=== PATIENT | male | born 1975 | race Caucasian/White ===

== ENCOUNTER 2024-06-09 10:28 | Inpatient (IN) | payer OTHER ==
[~2024-06-09] VITALS: Ht 177.8 cm; Wt 191.4 kg
[2024-06-09] MEDS: SODIUM CHLORIDE 0.9% (SEPSIS BOLUS) IV ONE (11:09)
[2024-06-09] MEDS: PIPERACILLIN/TAZO 3.375G/50ML 50 ML IV ONE (11:09)
[2024-06-09 11:22] LABS: BG BASE EXCESS -5.5 mmol/L (-2.0-3.0); BG CARBOXYHEMOGLOBIN 0.5 % (0.5-1.5); BG DEOXYHEMOGLOBIN 8.8 % (0.0-5.0); BG FRACTION INSPIRED OXYGEN 21; BG METHEMOGLOBIN 0.3 % (0.5-1.5); BG OXYGEN SATURATION 91.1 % (94.0-98.0); BG OXYHEMOGLOBIN 90.4 % (94.0-98.0); BG PCO2 25.6 mmHg (35.0-48.0); BG PH 7.441 (7.350-7.450); BG PO2 58.6 mmHg (83.0-108.0); BG SAMPLE SITE RIGHT RADIAL; BG TOTAL HEMOGLOBIN 12.6 g/dL (13.5-17.5); BG VENT MODE ROOM AIR
[2024-06-09 11:30] LABS: HEMATOCRIT. 37.4 % (42.0-52.0); HEMOGLOBIN. 12.4 g/dL (14.0-18.0); MEAN CORPUSCULAR HEMOGLOBIN 34.4 pg (28.0-32.0); MEAN CORPUSCULAR HGB CONC 33.3 g/dL (31.0-37.0); MEAN CORPUSCULAR VOLUME 103.4 fL (80.0-94.0); MEAN PLATELET VOLUME 8.3 fl (7.4-10.4); PLATELET 146 x1000/uL (130-400); RED BLOOD CELL COUNT 3.62 mill/uL (4.7-6.1); RED CELL DISTRIBUTION WIDTH 15.4 % (11.6-14.6); WHITE BLOOD COUNT 16.2 x1000/uL (4.5-11.0)
[2024-06-09 11:34] LABS: CHLORIDE 109 mEq/L (98-107); POTASSIUM 4.1 mEq/L (3.5-5.1); SODIUM 140 mEq/L (136-145)
[2024-06-09 11:35] LABS: CARBON DIOXIDE 19 mEq/L (21-32); INR 1.3; PROTHROMBIN TIME 14.1 sec (9.6-11.0)
[2024-06-09 11:36] LABS: CALCIUM 8.2 mg/dL (8.7-10.4)
[2024-06-09 11:39] LABS: DIFFERENTIAL COMMENT 1
[2024-06-09 11:40] LABS: CREATININE 1.2 mg/dL (0.6-1.3); GLUCOSE 102 mg/dL (70-105)
[2024-06-09 11:41] LABS: TROPONIN I HIGH SENSITIVITY 30 ng/L (3.0-53); UREA NITROGEN BLOOD 16 mg/dL (9-23)
[2024-06-09 11:42] LABS: ALANINE AMINOTRANSFERASE 22 IU/L (10-49); ASPARTATE AMINOTRANSFERASE 50 IU/L (<34)
[2024-06-09 11:43] LABS: ALBUMIN 2.9 g/dL (3.2-4.8); BILIRUBIN DIRECT 1.4 mg/dL (<=3.0); PROTEIN TOTAL 6.2 g/dL (6.0-8.3)
[2024-06-09 11:55] LABS: PLATELET ESTIMATE NORMAL
[2024-06-09] MEDS: VANCOMYCIN 1G PREMIX 200 ML IV ONE (12:20)
[2024-06-09] MEDS ORDERED: VANCOMYCIN 1G PREMIX 200 ML IV ONE (12:30)
[2024-06-09 12:31] LABS: LACTIC ACID 5.8 mmol/L (0.4-2.0)
[2024-06-09] MEDS ORDERED: MAGNESIUM/ALUMINUM HYDROXIDE/SIMETHICONE 30ML UDC PO PRN (12:45)
[2024-06-09] MEDS ORDERED: GUAIFENESIN 200MG/10ML SUGAR FREE UDC PO PRN (12:45)
[2024-06-09] MEDS ORDERED: ONDANSETRON HCL 4MG/2ML INJ IV PRN (12:45)
[2024-06-09] MEDS ORDERED: ACETAMINOPHEN 325MG TABLET PO PRN (12:45)
[2024-06-09] MEDS ORDERED: DOCUSATE SODIUM 100MG CAPSULE PO PRN (12:45)
[2024-06-09] MEDS ORDERED: IPRATROPIUM/ALBUTEROL 0.5-3(2.5)MG/3ML NEB HHN PRN ×2 (12:45)
[2024-06-09] MEDS ORDERED: HYDRALAZINE 20MG/ML VIAL IV PRN (12:45)
[2024-06-09] MEDS ORDERED: CLONIDINE 0.1MG TABLET PO PRN (12:45)
[2024-06-09] MEDS: ACETAMINOPHEN 325MG TABLET PO ONE (12:46)
[2024-06-09] MEDS: KETOROLAC 30MG/ML VIAL IV ONE (12:46)
[2024-06-09] MEDS: VANCOMYCIN 1GM PMX (XELLIA) 200 ML IV NR (13:56)
[2024-06-09] MEDS: SODIUM CHLORIDE 0.45% 1,000 ML IV SCH (15:17)
[2024-06-09] MEDS: ENOXAPARIN 40MG/0.4ML SYR SUBCUT SCH (15:17)
[2024-06-09] MEDS: PIPERACILLIN/TAZO 3.375G/50ML 50 ML IV SCH (15:18)
[2024-06-09 18:30] VITALS: BP 110/60; PULSE 90; RESP 20; TEMP 36.9474; O2SAT 100
[2024-06-09 19:00] VITALS: BP 109/55; PULSE 92; RESP 19; O2SAT 98
[2024-06-09 20:00] VITALS: BP 104/59; PULSE 86; RESP 19; TEMP 36.89184; O2SAT 93
[2024-06-09] MEDS: IPRATROPIUM/ALBUTEROL 0.5-3(2.5)MG/3ML NEB HHN SCH (20:40)
[2024-06-09] MEDS: VANCOMYCIN 1GM PMX (XELLIA) 200 ML IV SCH (20:42)
[2024-06-09] MEDS: FAMOTIDINE 20MG TABLET PO SCH (21:13)
[2024-06-09 22:00] VITALS: BP 98/59; PULSE 82; RESP 19; O2SAT 94
[2024-06-09 22:49] VITALS: BP 104/59; PULSE 86; RESP 19; TEMP 36.9184
[2024-06-10] VITALS (14 sets, daily range): BP systolic 98–137; BP diastolic 54–76; PULSE 76–96; RESP 12–26; TEMP 36.50292–37.503; O2SAT 94–99
[2024-06-10 03:26] LABS: CLARITY URINE CLEAR (CLEAR); COLOR URINE DARK YELLOW (YELLOW); GLUCOSE URINE NEGATIVE (NEGATIVE); KETONES URINE NEGATIVE (NEGATIVE); LEUKOCYTE ESTERASE URINE TRACE (NEGATIVE); NITRITE URINE NEGATIVE (NEGATIVE); OCCULT BLOOD URINE NEGATIVE (NEGATIVE); PH URINE 5.5 (4.5-8.0); PROTEIN URINE 1+ (NEGATIVE); SPECIFIC GRAVITY URINE 1.039 (1.005-1.030)
[2024-06-10 03:35] LABS: *AMPHETAMINES SCREEN URINE NEGATIVE (NEGATIVE)
[2024-06-10 03:36] LABS: *BARBITURATES SCREEN URINE NEGATIVE (NEGATIVE); *BENZODIAZEPINES SCREEN URINE NEGATIVE (NEGATIVE); *COCAINE SCREEN URINE NEGATIVE (NEGATIVE); CANNABINOID URINE SCREEN NEGATIVE (NEGATIVE); ECSTASY MDMA SCREEN URINE NEGATIVE (NEGATIVE); METHADONE URINE SCREEN NEGATIVE (NEGATIVE); OPIATES URINE SCREEN PRESUMPTIVE POSITIVE (NEGATIVE); PHENCYCLIDINE URINE SCREEN NEGATIVE (NEGATIVE)
[2024-06-10 04:54] LABS: SQUAMOUS EPITHELIAL CELL URINE FEW /lpf (RARE/1+)
[2024-06-10 04:55] LABS: WBC URINE 0-2 /hpf (0-2)
[2024-06-10 04:56] LABS: BACTERIA URINE NONE SEEN; RBC URINE 0-2 /hpf (0-2)
[2024-06-10] MEDS: PIPERACILLIN/TAZO 3.375G/50ML 50 ML IV SCH (05:02)
[2024-06-10 07:32] LABS: CARBON DIOXIDE 24 mEq/L (21-32); CHLORIDE 110 mEq/L (98-107); POTASSIUM 3.8 mEq/L (3.5-5.1); SODIUM 139 mEq/L (136-145)
[2024-06-10 07:33] LABS: CALCIUM 8.2 mg/dL (8.7-10.4)
[2024-06-10 07:37] LABS: CREATININE 1.2 mg/dL (0.6-1.3); GLUCOSE 76 mg/dL (70-105); IRON 24 ug/dL (65-175)
[2024-06-10 07:38] LABS: LACTIC ACID 3.1 mmol/L (0.4-2.0); TRIGLYCERIDE 109 mg/dL (0-150); UREA NITROGEN BLOOD 21 mg/dL (9-23)
[2024-06-10 07:39] LABS: LDL CHOLESTEROL 35 mg/dL (5-100)
[2024-06-10 07:40] LABS: CHOLESTEROL 89 mg/dL (<200); CREATINE KINASE > 1300 IU/L (46-171); HDL CHOLESTEROL 20 mg/dL (>55); PHOSPHORUS 2.9 mg/dL (2.5-4.9); TOTAL IRON BINDING CAPACITY 273 ug/dl (250-425)
[2024-06-10 07:42] LABS: T4 FREE 1.09 ng/dL (0.89-1.76); THYROID STIMULATING HORMONE 1.31 uIU/mL (0.55-4.78)
[2024-06-10 07:45] LABS: FOLIC ACID (FOLATE) SERUM 7.99 ng/mL (>5.38)
[2024-06-10 07:46] LABS: VITAMIN B12 SERUM 1113 pg/mL (211-911)
[2024-06-10 08:27] LABS: HEMATOCRIT. 35.9 % (42.0-52.0); MEAN CORPUSCULAR HEMOGLOBIN 33.1 pg (28.0-32.0); MEAN CORPUSCULAR HGB CONC 30.8 g/dL (31.0-37.0); MEAN CORPUSCULAR VOLUME 107.3 fL (80.0-94.0); MEAN PLATELET VOLUME 8.9 fl (7.4-10.4); PLATELET 92 x1000/uL (130-400); RED BLOOD CELL COUNT 3.34 mill/uL (4.7-6.1); RED CELL DISTRIBUTION WIDTH 16.5 % (11.6-14.6); WHITE BLOOD COUNT 5.1 x1000/uL (4.5-11.0)
[2024-06-10 08:31] LABS: DIFFERENTIAL COMMENT 1
[2024-06-10 09:01] LABS: BG CARBOXYHEMOGLOBIN 0.5 % (0.5-1.5); BG DEOXYHEMOGLOBIN 5.5 % (0.0-5.0); BG FRACTION INSPIRED OXYGEN 21; BG HCO3 ACT 23.2 mmol/L (21.0-28.0); BG METHEMOGLOBIN 0.3 % (0.5-1.5); BG OXYGEN SATURATION 94.5 % (94.0-98.0); BG OXYHEMOGLOBIN 93.7 % (94.0-98.0); BG PCO2 32.8 mmHg (35.0-48.0); BG PH 7.467 (7.350-7.450); BG PO2 64.9 mmHg (83.0-108.0); BG SAMPLE SITE RIGHT RADIAL; BG VENT MODE ROOM AIR
[2024-06-10] MEDS ORDERED: LIDOCAINE HCL 1% 10 MG/ML 10ML VIAL ONE (09:31)
[2024-06-10] MEDS: VANCOMYCIN 1.25GM PMX (XELLIA) 250 ML IV SCH (10:53)
[2024-06-10] MEDS: LIDOCAINE HCL 4% (40MG/ML) SOLN 50ML TOP NR (11:59)
[2024-06-10] MEDS ORDERED: LAMO200T9 MT (15:15)
[2024-06-10] MEDS: ACETAMINOPHEN 325MG TABLET PO PRN (17:17)
[2024-06-11 05:10] LABS: PLATELET ESTIMATE NORMAL
== END 2024-06-10 23:00 | disposition short-term general hospital (02) | DRG 853 ==
LOC: ER 10:28 → 5EST 12:32 → EDBEDREQSVC 12:34 → EDBEDREQ 12:34 → EDBEDREQTM 12:34
PROVIDERS: ADMIT Internal Medicine; ATTEND Internal Medicine
PROC: 0JBP0ZZ Excision of Left Lower Leg Subcutaneous Tissue and Fascia, Open Approach (ICD-10-PCS; principal; 2024-06-10)
PROC: 05HY33Z Insertion of Infusion Device into Upper Vein, Percutaneous Approach (ICD-10-PCS; 2024-06-10)
PROC: B54MZZA Ultrasonography of Right Upper Extremity Veins, Guidance (ICD-10-PCS; 2024-06-10)
DX: A41.9 Sepsis, unspecified organism (principal); R65.21 Severe sepsis with septic shock; M62.82 Rhabdomyolysis; E87.20 Acidosis, unspecified; E46 Unspecified protein-calorie malnutrition; L97.829 Non-pressure chronic ulcer of other part of left lower leg with unspecified severity; Z68.44 Body mass index [BMI] 60.0-69.9, adult; L03.116 Cellulitis of left lower limb; D53.9 Nutritional anemia, unspecified; I11.9 Hypertensive heart disease without heart failure; J45.909 Unspecified asthma, uncomplicated; G40.909 Epilepsy, unspecified, not intractable, without status epilepticus; F32.A Depression, unspecified; E66.01 Morbid (severe) obesity due to excess calories; G47.33 Obstructive sleep apnea (adult) (pediatric); G62.9 Polyneuropathy, unspecified; Z86.73 Personal history of transient ischemic attack (TIA), and cerebral infarction without residual deficits; Z87.39 Personal history of other diseases of the musculoskeletal system and connective tissue; W06.XXXA Fall from bed, initial encounter; Y92.003 Bedroom of unspecified non-institutional (private) residence as the place of occurrence of the external cause; Y93.89 Activity, other specified; Y99.9 Unspecified external cause status
CPT/HCPCS: 36415; 36573; 36600; 71045; 73030; 80048; 80061; 80076; 80305; 81003; 82375; 82550; 82607; 82746; 82805; 83036; 83540; 83550; 83605; 83735; 84100; 84145; 84439; 84443; 84484; 85025; 87070; 87077; 87186; 93005; 93923; 93970; 94640; 97165; 99291; C1725; J1650; J1885; J2543; J3370; J3490; J7030

== ENCOUNTER 2024-06-26 08:26 | Inpatient (IN) | payer OTHER ==
[~2024-06-26] VITALS: Ht 185.4 cm; Wt 178.7 kg
[~2024-06-26 08:26] MED LIST: LAMO200T9 MT
[2024-06-26] MEDS: SODIUM CHLORIDE 0.9% (SEPSIS BOLUS) IV ONE (09:00)
[2024-06-26 09:03] LABS: BASOPHILS % 0.6 % (0.0-2.0); DIFFERENTIAL COMMENT 0; EOSINOPHILS % 4.4 % (0.0-5.0); HEMATOCRIT. 33.7 % (42.0-52.0); HEMOGLOBIN. 11.1 g/dL (14.0-18.0); MEAN CORPUSCULAR HEMOGLOBIN 33.5 pg (28.0-32.0); MEAN CORPUSCULAR HGB CONC 32.8 g/dL (31.0-37.0); MEAN CORPUSCULAR VOLUME 102.2 fL (80.0-94.0); MEAN PLATELET VOLUME 7.7 fl (7.4-10.4); MONOCYTES % 13.6 % (2.0-8.0); NEUTROPHILS % 65.4 % (40.0-76.0); PLATELET 179 x1000/uL (130-400); RED CELL DISTRIBUTION WIDTH 16.5 % (11.6-14.6); WHITE BLOOD COUNT 5.2 x1000/uL (4.5-11.0)
[2024-06-26] MEDS: PIPERACILLIN/TAZO 3.375G/50ML 50 ML IV ONE (09:05)
[2024-06-26 09:15] LABS: CHLORIDE 109 mEq/L (98-107); POTASSIUM 3.9 mEq/L (3.5-5.1); SODIUM 142 mEq/L (136-145)
[2024-06-26 09:16] LABS: CALCIUM 8.4 mg/dL (8.7-10.4); CARBON DIOXIDE 27 mEq/L (21-32)
[2024-06-26 09:17] LABS: INR 1.2; PROTHROMBIN TIME 13.5 sec (9.6-11.0)
[2024-06-26 09:21] LABS: CREATININE 1.2 mg/dL (0.6-1.3); GLUCOSE 102 mg/dL (70-105); LACTIC ACID 2.4 mmol/L (0.4-2.0); UREA NITROGEN BLOOD 11 mg/dL (9-23)
[2024-06-26 09:23] LABS: ALANINE AMINOTRANSFERASE 27 IU/L (10-49); ALBUMIN 2.7 g/dL (3.2-4.8); ASPARTATE AMINOTRANSFERASE 55 IU/L (<34); BILIRUBIN DIRECT 1.1 mg/dL (<=3.0)
[2024-06-26 09:44] LABS: TROPONIN I HIGH SENSITIVITY < 4 ng/L (3.0-53)
[2024-06-26] MEDS: VANCOMYCIN 1G PREMIX 200 ML IV ONE (09:44)
[2024-06-26] MEDS: MORPHINE SULFATE 4 MG/ML INJ (FOR IV/IM USE) IV ONE (10:17)
[2024-06-26] MEDS: ONDANSETRON HCL 4MG/2ML INJ IV ONE (10:17)
[2024-06-26 11:34] LABS: CLARITY URINE CLOUDY (CLEAR); COLOR URINE DARK YELLOW (YELLOW); GLUCOSE URINE NEGATIVE (NEGATIVE); KETONES URINE NEGATIVE (NEGATIVE); LEUKOCYTE ESTERASE URINE NEGATIVE (NEGATIVE); NITRITE URINE NEGATIVE (NEGATIVE); OCCULT BLOOD URINE 1+ (NEGATIVE); PROTEIN URINE TRACE (NEGATIVE); SPECIFIC GRAVITY URINE 1.024 (1.005-1.030); UROBILINOGEN URINE 0.2 E.U./dL (0.2-1.0)
[2024-06-26 12:22] LABS: MUCUS URINE 3+ /lpf (NONE/TRACE)
[2024-06-26 12:24] LABS: CALCIUM OXALATE CRYSTALS URINE 1+ /lpf
[2024-06-26 12:25] LABS: SQUAMOUS EPITHELIAL CELL URINE 2+ /lpf (RARE/1+)
[2024-06-26 12:26] LABS: BACTERIA URINE 1+
[2024-06-26 12:28] LABS: WBC URINE 0-2 /hpf (0-2)
[2024-06-26] MEDS ORDERED: NALOXONE HCL 0.4MG/ML VIAL IV PRN (13:45)
[2024-06-26] MEDS ORDERED: MAGNESIUM/ALUMINUM HYDROXIDE/SIMETHICONE 30ML UDC PO PRN (15:00)
[2024-06-26] MEDS ORDERED: ONDANSETRON HCL 4MG/2ML INJ IV PRN (15:00)
[2024-06-26] MEDS ORDERED: ACETAMINOPHEN 325MG TABLET PO PRN (15:00)
[2024-06-26] MEDS ORDERED: MORPHINE SULFATE 2 MG/ML INJ (NOT FOR IM USE) IV PRN (15:00)
[2024-06-26 16:00] VITALS: BP 121/64; PULSE 94; RESP 15; O2SAT 98
[2024-06-26] MEDS: SODIUM CHLORIDE 0.9% 1,000 ML IV SCH (16:10)
[2024-06-26] MEDS: MORPHINE SULFATE 2 MG/ML INJ (NOT FOR IM USE) IV PRN (16:10)
[2024-06-26 17:54] VITALS: BP 108/54; PULSE 98; RESP 14; O2SAT 98
[2024-06-26] MEDS: VANCOMYCIN 1.25GM PMX (XELLIA) 250 ML IV SCH (18:30)
[2024-06-26 20:00] VITALS: BP 127/69; PULSE 92; RESP 20; TEMP 36.83628
[2024-06-26] MEDS ORDERED: ZOLPIDEM TARTRATE 5MG TABLET PO PRN (21:00)
[2024-06-26] MEDS ORDERED: PIPERACILLIN/TAZO 3.375G/50ML 50 ML IV SCH (22:00)
[2024-06-26 22:30] VITALS: BP 124/70; PULSE 76; RESP 19; TEMP 36.8072
[2024-06-26 23:59] VITALS: BP 122/50; PULSE 99; RESP 19; TEMP 36.28068
[2024-06-27] MEDS: PIPERACILLIN/TAZO 3.375G/50ML 50 ML IV SCH (00:29)
[2024-06-27 01:24] LABS: CREATINE KINASE 200 IU/L (46-171)
[2024-06-27 01:27] LABS: TROPONIN I HIGH SENSITIVITY < 4 ng/L (3.0-53)
[2024-06-27 04:00] VITALS: BP 108/49; PULSE 95; RESP 18; TEMP 36.72516
[2024-06-27 08:00] VITALS: BP 131/62; PULSE 95; RESP 20; TEMP 36.6696; O2SAT 96
[2024-06-27] MEDS: PANTOPRAZOLE SODIUM 40 MG/VIAL IV SCH (08:36)
[2024-06-27 08:37] LABS: BASOPHILS % 1.1 % (0.0-2.0); DIFFERENTIAL COMMENT 0; EOSINOPHILS % 4.8 % (0.0-5.0); HEMATOCRIT. 30.2 % (42.0-52.0); HEMOGLOBIN. 9.7 g/dL (14.0-18.0); LYMPHOCYTES % 14.3 % (20.0-50.0); MEAN CORPUSCULAR HEMOGLOBIN 33.4 pg (28.0-32.0); MEAN CORPUSCULAR HGB CONC 32.2 g/dL (31.0-37.0); MEAN CORPUSCULAR VOLUME 103.6 fL (80.0-94.0); MEAN PLATELET VOLUME 7.7 fl (7.4-10.4); MONOCYTES % 11.9 % (2.0-8.0); NEUTROPHILS % 67.9 % (40.0-76.0); PLATELET 134 x1000/uL (130-400); RED BLOOD CELL COUNT 2.92 mill/uL (4.7-6.1); RED CELL DISTRIBUTION WIDTH 17.2 % (11.6-14.6); WHITE BLOOD COUNT 4.8 x1000/uL (4.5-11.0)
[2024-06-27 08:43] LABS: CALCIUM 8.1 mg/dL (8.7-10.4); POTASSIUM 4.4 mEq/L (3.5-5.1)
[2024-06-27 08:49] LABS: CREATININE 1.5 mg/dL (0.6-1.3)
[2024-06-27 08:53] LABS: CREATINE KINASE 148 IU/L (46-171)
[2024-06-27 09:09] LABS: TROPONIN I HIGH SENSITIVITY < 4 ng/L (3.0-53)
[2024-06-27 10:09] LABS: *AMPHETAMINES SCREEN URINE NEGATIVE (NEGATIVE)
[2024-06-27 10:11] LABS: *BARBITURATES SCREEN URINE NEGATIVE (NEGATIVE); *BENZODIAZEPINES SCREEN URINE NEGATIVE (NEGATIVE); *COCAINE SCREEN URINE NEGATIVE (NEGATIVE); CANNABINOID URINE SCREEN NEGATIVE (NEGATIVE); ECSTASY MDMA SCREEN URINE NEGATIVE (NEGATIVE); METHADONE URINE SCREEN NEGATIVE (NEGATIVE); OPIATES URINE SCREEN PRESUMPTIVE POSITIVE (NEGATIVE); PHENCYCLIDINE URINE SCREEN NEGATIVE (NEGATIVE)
[2024-06-27] MEDS ORDERED: LIDOCAINE HCL 1% 10 MG/ML 10ML VIAL ONE (10:22)
[2024-06-27] MEDS ORDERED: SODIUM BICARBONATE 4% 2.4MEQ/5ML VIAL IV ONE (10:22)
[2024-06-27 12:00] VITALS: BP 114/57; PULSE 97; RESP 20; TEMP 36.50292; O2SAT 98
[2024-06-27] MEDS: VANCOMYCIN 1GM/200ML PMX (BAXTER) IV SCH (13:37)
[2024-06-27] MEDS ORDERED: VANCOMYCIN 1.25GM PMX (XELLIA) 250 ML IV SCH (14:00)
[2024-06-27 14:12] LABS: BODY FLUID RBC 190 /cu mm (0-2000); BODY FLUID WBC 293 /cu mm (0-200)
[2024-06-27 14:29] LABS: BODY FLUID MONOCYTES 65 %
[2024-06-27 16:00] VITALS: BP 148/56; PULSE 91; RESP 20; TEMP 36.6696; O2SAT 91
[2024-06-27 17:52] VITALS: BP 148/56; PULSE 91; TEMP 98; O2SAT 91
[2024-06-28 00:45] VITALS: BP 125/57; PULSE 70; RESP 20; TEMP 36.22512; O2SAT 92
[2024-07-03 08:28] LABS: HEPATITIS B SURFACE ANTIGEN NEGATIVE (Negative)
[2024-07-03 08:42] LABS: HIV 1/2 AB P24AG Negative (Negative)
[2024-07-03 08:49] LABS: HEPATITIS A AB IGM NEGATIVE (Negative)
[2024-07-03 08:50] LABS: HEPATITIS B CORE AB IGM NEGATIVE (Negative); HEPATITIS C AB NON REACTIVE (Neg) (Negative)
== END 2024-06-28 00:40 | disposition short-term general hospital (02) | DRG 871 ==
LOC: ER 08:26 → EDBEDREQ 09:31 → 5WST 10:30 → EDBEDREQSVC 12:34 → EDBEDREQTM 12:34 → EDBEDREQ 12:34 → 7EST 22:15
PROVIDERS: ADMIT Internal Medicine; ATTEND Internal Medicine
PROC: 0W9G3ZZ Drainage of Peritoneal Cavity, Percutaneous Approach (ICD-10-PCS; principal; 2024-06-27)
DX: A41.9 Sepsis, unspecified organism (principal); J69.0 Pneumonitis due to inhalation of food and vomit; K65.2 Spontaneous bacterial peritonitis; R18.8 Other ascites; Z68.43 Body mass index [BMI] 50.0-59.9, adult; E87.20 Acidosis, unspecified; I10 Essential (primary) hypertension; R65.20 Severe sepsis without septic shock; E05.90 Thyrotoxicosis, unspecified without thyrotoxic crisis or storm; E66.01 Morbid (severe) obesity due to excess calories; K74.60 Unspecified cirrhosis of liver; E80.6 Other disorders of bilirubin metabolism; Z86.73 Personal history of transient ischemic attack (TIA), and cerebral infarction without residual deficits
CPT/HCPCS: 36415; 49083; 71045; 74176; 80048; 80076; 80305; 81003; 82550; 83605; 84145; 84484; 85025; 86705; 86709; 87340; 88108; 93005; 93970; 99291; J2270; J2405; J2470; J2543; J3370; J3490; J7030

== ENCOUNTER 2024-07-31 16:59 | Emergency (ER) | payer OTHER ==
[~2024-07-31] VITALS: Ht 188 cm; Wt 136.0 kg
[2024-07-31 17:01] VITALS: O2SAT 98
[2024-07-31 17:55] LABS: BASOPHILS % 0.3 % (0.0-2.0); DIFFERENTIAL COMMENT 0; EOSINOPHILS % 1.8 % (0.0-5.0); HEMATOCRIT. 41.3 % (42.0-52.0); HEMOGLOBIN. 13.5 g/dL (14.0-18.0); LYMPHOCYTES % 18.1 % (20.0-50.0); MEAN CORPUSCULAR HEMOGLOBIN 34.1 pg (28.0-32.0); MEAN CORPUSCULAR HGB CONC 32.7 g/dL (31.0-37.0); MEAN CORPUSCULAR VOLUME 104.5 fL (80.0-94.0); MEAN PLATELET VOLUME 8.8 fl (7.4-10.4); MONOCYTES % 10.1 % (2.0-8.0); NEUTROPHILS % 69.7 % (40.0-76.0); PLATELET 127 x1000/uL (130-400); RED BLOOD CELL COUNT 3.96 mill/uL (4.7-6.1); RED CELL DISTRIBUTION WIDTH 17.8 % (11.6-14.6); WHITE BLOOD COUNT 5.2 x1000/uL (4.5-11.0)
[2024-07-31 18:16] LABS: CHLORIDE 104 mEq/L (98-107); POTASSIUM 4.4 mEq/L (3.5-5.1); SODIUM 135 mEq/L (136-145)
[2024-07-31 18:17] LABS: CALCIUM 9.3 mg/dL (8.7-10.4); CARBON DIOXIDE 25 mEq/L (21-32)
[2024-07-31 18:22] LABS: GLUCOSE 106 mg/dL (70-105); UREA NITROGEN BLOOD 21 mg/dL (9-23)
[2024-07-31 18:23] LABS: AMMONIA 48 uMol/L (<32); LACTIC ACID 2.1 mmol/L (0.4-2.0)
[2024-07-31 18:24] LABS: ALANINE AMINOTRANSFERASE 24 IU/L (10-49); ALBUMIN 3.2 g/dL (3.2-4.8); ASPARTATE AMINOTRANSFERASE 45 IU/L (<34); BILIRUBIN DIRECT 1.3 mg/dL (<=3.0)
[2024-07-31 18:25] LABS: BILIRUBIN TOTAL 2.9 mg/dL (0.1-1.0); PROTEIN TOTAL 6.6 g/dL (6.0-8.3)
[2024-07-31 18:28] LABS: TROPONIN I HIGH SENSITIVITY < 4 ng/L (3.0-53)
[2024-07-31] MEDS: SODIUM CHLORIDE 0.9% 1,000 ML IV ONE (19:15)
[2024-07-31 21:03] LABS: TROPONIN I HIGH SENSITIVITY < 4 ng/L (3.0-53)
[2024-07-31] MEDS ORDERED: SODIUM CHLORIDE 0.9% 1,000 ML IV ONE (21:30)
[2024-07-31] MEDS: PIPERACILLIN/TAZO 3.375G/50ML 50 ML IV SCH (22:04)
[2024-07-31] MEDS: VANCOMYCIN 1G PREMIX 200 ML IV NR (22:52)
[2024-07-31] MEDS ORDERED: GUAIFENESIN 200MG/10ML SUGAR FREE UDC PO PRN (23:15)
[2024-07-31] MEDS ORDERED: ONDANSETRON HCL 4MG/2ML INJ IV PRN (23:15)
[2024-07-31] MEDS ORDERED: ACETAMINOPHEN 325MG TABLET PO PRN ×2 (23:15)
[2024-07-31] MEDS ORDERED: KETOROLAC 15MG/ML VIAL IV PRN (23:15)
[2024-07-31] MEDS ORDERED: DOCUSATE SODIUM 100MG CAPSULE PO PRN (23:15)
[2024-07-31] MEDS ORDERED: ZOLPIDEM TARTRATE 5MG TABLET PO PRN (23:15)
[2024-07-31] MEDS ORDERED: MAGNESIUM/ALUMINUM HYDROXIDE/SIMETHICONE 30ML UDC PO PRN (23:15)
[2024-07-31] MEDS ORDERED: IPRATROPIUM/ALBUTEROL 0.5-3(2.5)MG/3ML NEB NEB PRN (23:15)
[2024-07-31] MEDS ORDERED: CLONIDINE 0.1MG TABLET PO PRN (23:15)
[2024-07-31] MEDS ORDERED: NITROGLYCERIN 0.4MG TABLET SL SL PRN (23:15)
[2024-07-31 23:38] LABS: IRON 105 ug/dL (65-175)
[2024-07-31 23:41] LABS: TOTAL IRON BINDING CAPACITY 172 ug/dl (250-425)
[2024-07-31 23:45] LABS: FOLIC ACID (FOLATE) SERUM > 20.00 ng/mL (>5.38); T4 FREE 1.02 ng/dL (0.89-1.76); THYROID STIMULATING HORMONE 2.02 uIU/mL (0.55-4.78)
[2024-07-31 23:46] LABS: VITAMIN B12 SERUM > 2000 pg/mL (211-911)
[2024-08-01] MEDS ORDERED: VANCOMYCIN 1G PREMIX 200 ML IV NR
[2024-08-01 00:20] VITALS: BP 108/57; PULSE 77; RESP 18; TEMP 36.00288; O2SAT 98
[2024-08-01] MEDS ORDERED: PIPERACILLIN/TAZO 3.375G/50ML 50 ML IV SCH (06:00)
[2024-08-01] MEDS ORDERED: ASPIRIN 81MG EC TABLET PO SCH (09:00)
[2024-08-01] MEDS ORDERED: VANCOMYCIN 750MG PMX (XELLIA) 150 ML IV SCH (09:00)
[2024-08-01] MEDS ORDERED: PANTOPRAZOLE SODIUM 40 MG/VIAL IV SCH (09:00)
[2024-08-01] MEDS ORDERED: ENOXAPARIN 40MG/0.4ML SYR SUBCUT SCH (09:00)
== END 2024-08-01 00:47 | disposition short-term general hospital (02) ==
LOC: ER 16:59 → EDBEDREQ 17:43 → ER 08-01 00:47
DX: L03.90 Cellulitis, unspecified (principal); R55 Syncope and collapse; R41.82 Altered mental status, unspecified; Z86.73 Personal history of transient ischemic attack (TIA), and cerebral infarction without residual deficits; K74.60 Unspecified cirrhosis of liver
CPT/HCPCS: 80076; 80048; 82140; 82607; 82746; 83036; 83880; 84439; 83540; 83550; 83605; 84443; 85025; 84484; 36415; 71045; 70450; 93005; 96368; 96365; 96366; 99285; J2543; J3370; J7030; Z7610